=== PATIENT | female | born 1995 | race African-American/Black ===

== ENCOUNTER 2016-11-21 12:08 | Emergency (ER) | payer OTHER ==
[~2016-11-21] VITALS: Ht 165.1 cm; Wt 68.0 kg
[2016-11-21] MEDS ORDERED: ERGO400C PO (12:26)
[2016-11-21] MEDS ORDERED: OMEG-160 PO (12:26)
--- NOTE | 2016-11-21 12:37 | ED General ---
General Chief Complaint: General Problems/Pain Stated Complaint: LIGHTHEADED [place] Nursing Triage Note: ARRIVED VIA AMB WITH COMPLAINTS OF NOT FEELING WELL INCLUDING A SWOLLEN THROAT BUT NOT PAINFUL STARTING LAST NOC. Nursing Sepsis Screen: No Definite Risk Source of Information: Patient Exam Limitations: No Limitations History of Present Illness Time Seen by Provider: 12:20 Initial Comments Here with complaint of not feeling well and having sore throat starting last night. Denies cough. Does complain of nasal congestion. Significant other does report that she had fairly significant mouth breathing last night indicating nasal congestion. Denies shortness of breath or fevers. Timing/Duration: 24 Hours Severity: Moderate Associated Systoms: No Chest Pain, No Cough, No Fever/Chills, No Nausea/ Vomiting, No Shortness of Air, No Weakness Allergies and Home Medications Allergies Coded Allergies: gluten (Verified Allergy, Unknown, 11/21/16) Home Medications Cholecalciferol (Vitamin D3) 400 Unit Capsule 400 UNIT PO (Reported) [place]-3/Dha/Epa/Fish Oil 1 Each Capsule 1 EACH PO DAILY (Reported) Constitutional: see HPINo chills, No fever, malaise EENTM: nose congestion see HPI throat pain Respiratory: no symptoms reported Cardiovascular: no symptoms reported Gastrointestinal: no symptoms reportedNo nausea, No vomiting Genitourinary: no symptoms reported Musculoskeletal: other (mild body aches) Skin: no symptoms reported Psychiatric/Neurological: No Symptoms Reported Past [id number] Hx Patient Social History Alcohol Use: Denies Use Recreational Drug Use: No Smoking Status: Never a Smoker Recent Foreign Travel: No Contact w/Someone Who Travel: No Recent Infectious Disease Expo: No Recent Hopitalizations: No Surgeries HX Surgeries: Yes (DENTAL) Respiratory Hx Respiratory Disorders: No Cardiovascular Hx Cardiac Disorders: No Neurological Hx Neurological Disorders: No Reproductive System Hx Reproductive Disorders: No Genitourinary Hx Genitourinary Disorders: No Gastrointestinal Hx Gastrointestinal Disorders: No Musculoskeletal Hx Musculoskeletal Disorders: No Endocrine Hx Endocrine Disorders: No HEENT HX ENT Disorders: No Cancer Hx Cancer: No Psychosocial Hx Psychiatric Problems: No Reviewed Nursing Assessment Reviewed/Agree w Nursing PMH: Yes Family Medical History Significant Family History: No Pertinent Family Hx (vital) Physical Exam Vital Signs Vital Sign - Last 12Hours 11/21/16 12:21 Temp 97.5 Pulse 70 Resp 18 B/P 132/77 Pulse Ox 98 Capillary Refill : Less Than 3 Seconds General Appearance: No Apparent Distress WD/WN HEENT: Pharyngeal ErythemaNo Tonsillar Exudate, No Tonsillar Enlargement, Other (moderate bilateral nasal congestion and erythema with clear rhinorrhea.) Neck: Non Tender Supple Lymphadenopathy (L) Lymphadenopathy (R) Respiratory: Lungs Clear Normal Breath Sounds Cardiovascular: Regular Rate, Rhythm No Murmur Gastrointestinal: Non Tender Soft Back: Normal Inspection No CVA Tenderness No Vertebral Tenderness Neurologic/Psychiatric: Alert Oriented x3 Skin: Normal Color Warm/Dry Progress/Results/Core Measures Results/Orders Lab Results Laboratory Tests Test 11/21/16 12:20 Range/Units Group A Streptococcus Screen NEGATIVE NEGATIVE Micro Results Microbiology 11/21/16 Influenza Types A,B Antigen (SARBJIT) - Final, Complete My Orders Orders-SYDNEE KENNEDY MD Rapid Strep A Screen (11/21/16 12:24) Influenza A And B Antigens (11/21/16 12:24) Dexamethasone Pf Injection (Decadron Pf (11/21/16 12:47) Vital Signs/I&O Vital Sign - Last 12Hours 11/21/16 11/21/16 12:21 13:00 Temp 97.5 97.5 Pulse 70 70 Resp 18 18 B/P 132/77 Pulse Ox 98 98 Blood Pressure Mean: 95 Progress Note : Progress Note Seen and evaluated. Influenza and strep screen done. Discharged with return precautions. Patient verbalize understanding instructions and agreement with plan. Decadron 10 mg IM given Departure Impression Impression: Primary Impression: Upper respiratory infection Qualified Code: J06.9 - Acute upper respiratory infection, unspecified Disposition: 01 HOME, SELF-CARE Condition: Improved Departure-Patient Inst. Decision time for Depature: 12:35 Referrals: NO,LOCAL PHYSICIAN (PCP/Family) Primary Care Physician Patient Instructions: Viral Upper Respiratory Infection, Adult (DC) Add. Discharge Instructions: All discharge instructions reviewed with patient and/or family. Voiced understanding.\ Drink plenty of fluids. You may take ibuprofen 600 mg every 8 hours as needed for pain or fever. You may take Tylenol 1000 mg every 8 hours as needed for pain or fever. You may use Afrin nasal spray or the generic, 12 hour relief, 2 sprays to each nostril twice daily for 3 days only and then stop. You may get this [id number]. Return for worse pain, fever, vomiting, weakness, breathing problems or other concerns as needed. SYDNEE KENNEDY MD Nov 21, 2016 12:36 SYDNEE KENNEDY MD Nov 21, 2016 12:36
[2016-11-21] MEDS ORDERED: DEXAMETHASONE PF 10 MG/ML (DECADRON) VIAL IM STA (12:47)
[2016-11-21 13:00] VITALS: BP 132/77
== END 2016-11-21 13:00 | disposition home or self-care (01) ==
LOC: ER 12:12
DX: J06.9 Acute upper respiratory infection, unspecified (principal)
CPT/HCPCS: 87430; 87804; 96372; 99282